=== PATIENT | female | born 2000 | race African-American/Black ===

== ENCOUNTER 2024-06-21 14:08 | Emergency (ER) | payer MEDICAID, SELFPAY ==
[2024-06-21 14:19] VITALS: BP 106/76; PULSE 108; RESP 16; TEMP 37.2; O2SAT 100
--- NOTE | 2024-06-21 15:21 | ED_ITS ---
HPI - Nausea/Vomiting/Diarrhea General Chief complaint: Nausea/Vomiting/Diarrhea Stated complaint: flu/cold symptoms Time Seen by Provider: 06/21/24 15:17 Source: patient and RN notes reviewed Mode of arrival: ambulatory Limitations: no limitations History of Present Illness HPI Narrative: Patient presents today complaining of a 7-8 episodes of vomiting since 7:00 a.m. this morning as well as 7 8 episodes of diarrhea that she describes as watery. Denies blood or mucus in the stool. She is continuing to be nauseated and has not been able to keep down any fluids since this morning. Denies fever or abdominal pain, but does also reports chills. She has tried no [id number] treatment prior to arrival. Related Data Allergies Allergy/AdvReac Type Severity Reaction Status Date / Time No Known Allergies Allergy Verified 06/21/24 14:21 Review of Systems Review of Systems: CONSTITUTIONAL: Denies body aches, fever, chills, or sweats. EYES: Denies visual changes, redness, or discharge. ENT: Denies rhinorrhea, congestion, sore throat, or otalgia. CARDIOVASCULAR: Denies chest pain, palpitations, or edema. RESPIRATORY: Denies cough or dyspnea. GASTROINTESTINAL: Denies abdominal pain. + nausea, vomiting, diarrhea GENITOURINARY: Denies dysuria or hematuria. SKIN: Denies rash, itching, or wounds. MUSCULOSKELETAL: Denies back pain, joint pain, or myalgia. NEUROLOGIC: Denies headache, numbness, tingling, or weakness. PSYCH: Denies depression or anxiety. PMFSH Comments At time of signature, I have reviewed and agree with nursing past medical, surgical, social and family history unless otherwise noted. Please see nursing chart for further information. There is no relevant family history pertinent to the presenting complaint Exam Narrative: GENERAL: Well-appearing, well-nourished, and in no acute distress. HEAD: Normocephalic, atraumatic. EYES: EOMI. No redness or drainage. Conjunctivae normal. ENT: Mucous membranes pink and moist. NECK: Normal AROM.. CHEST: No respiratory distress. Clear to auscultation. HEART: Regular rate and rhythm. No murmur appreciated. ABDOMEN: Soft, nontender, nondistended, normal active bowel sounds. EXTREMITIES: Normal range of motion. No edema. SKIN: Warm, dry, no rash. Capillary refill normal. Normal skin turgor. NEURO: No focal deficits. Alert and oriented x3. Gait steady. PSYCH: Normal affect. No signs of depression or anxiety. Course Course Level of Care: Express Care Visit Vital Signs Vital signs: Vital Signs Temperature 98.9 F 06/21/24 14:19 Pulse Rate 108 H 06/21/24 14:19 Respiratory Rate 16 06/21/24 14:19 Blood Pressure 106/76 06/21/24 14:19 Pulse Oximetry 100 06/21/24 14:19 Oxygen Delivery Room Air 06/21/24 14:19 Temperature 98.9 F 06/21/24 14:19 Pulse Rate 108 H 06/21/24 14:19 Respiratory Rate 16 06/21/24 14:19 Blood Pressure 106/76 06/21/24 14:19 Pulse Oximetry 100 06/21/24 14:19 Oxygen Delivery Room Air 06/21/24 14:19 Reviewed MDM - Nausea/Vomiting/Diarrhea MDM Narrative Medical decision making narrative: Patient is feeling better after dose of Zofran and has been able to keep down some water. Prescription for Zofran sent to pharmacy. Anticipatory guidance given. Differential Diagnosis Differential diagnosis: Likely food poisoning, gastroenteritis and dehydration Critical Care Time Critical Care Time Critical Care Time: No Discharge Plan Discharge Clinical Impression: Nausea vomiting and diarrhea Patient Disposition: Home, Self-Care Condition: Stable Instructions: Acute Nausea and Vomiting (DC), Acute Diarrhea (ED) Additional Instructions: Please take the Zofran as needed for your nausea and vomiting. Rest and stay hydrated with electrolyte fluids today. Your symptoms may resolve themselves in a day or 2. Advance your diet tomorrow to bland foods if you tolerate fluids tonight. Go to the ER if your unable to keep down fluids tonight with medication or you notice blood or mucus in your stool, develop a fever or severe abdominal pain. Patient Language: Luxem[place]ish Prescriptions: New ondansetron 4 mg tablet,disintegrating 4 mg PO TID PRN (Reason: nausea and vomiting) Qty: 15 0RF Follow-up/Referrals: Philip,Bradley Pinto MD [Primary Care Provider] - Stand Alone Forms: Work/School Release IP Time of Disposition: 15:53
[2024-06-21] MEDS: ONDANSETRON HCL ODT 4 MG TABLET 8 MG SUBLINGUAL (15:24)
== END 2024-06-21 15:57 | disposition home or self-care (01) ==
PROVIDERS: Emergency Provider Nurse Practitioner; PCP Family Medicine
DX: R11.2 Nausea with vomiting, unspecified (principal); R19.7 Diarrhea, unspecified
CPT/HCPCS: 99213; A9270; G0463